=== PATIENT | female | born 1955 | race Caucasian/White ===

== ENCOUNTER → 2023-11-09 15:52 | Outpatient (REF) | payer OTHER, SELFPAY | LOC: PAVMRI 15:52 | PROVIDERS: ATTENDING PHYSICIAN Student in an Organized Health Care Education/Training Program; FAMILY PHYSICIAN Internal Medicine Geriatric Medicine | DX: M25.561 Pain in right knee (principal); M17.11 Unilateral primary osteoarthritis, right knee | CPT/HCPCS: 73721 ==

== ENCOUNTER → 2024-01-28 15:02 | Outpatient (REF) | payer OTHER, SELFPAY | LOC: WDC 15:02 | PROVIDERS: ATTENDING PHYSICIAN Nurse Practitioner Family | DX: Z12.31 Encounter for screening mammogram for malignant neoplasm of breast (principal) | CPT/HCPCS: 77063; 77067 ==

== ENCOUNTER 2024-05-30 06:13 | Day surgery (SDC) | payer OTHER, SELFPAY ==
[2024-05-16 13:06] VITALS: BMI 40.3
[2024-05-16 13:06] LABS: Blood Urea Nitrogen 17 mg/dl (7-17); Calcium 9.2 mg/dl (8.4-10.2); Carbon Dioxide 24 mmol/L (22-30); Chloride 104 mmol/L (98-107); Glucose 117 mg/dl (70-99); Potassium 4.1 mmol/L (3.5-5.1); Sodium 139 mmol/L (135-145); eGFR > 60.00
[2024-05-30] VITALS (10 sets, daily range): BP systolic 131–174; BP diastolic 72–97; BMI 40.3
[2024-05-30] MEDS: TYLENOL 1000 MG PO (10:30)
[2024-05-30] MEDS: CELEBREX 200 MG PO (10:30)
[2024-05-30] MEDS: NORMOSOL-R/PLASMALYTE-A 1000 IV (10:31)
[2024-05-30] MEDS: ZOFRAN 4 MG IV (16:00)
== END 2024-05-30 18:24 | disposition home or self-care (01) ==
LOC: SDS 06:13
PROVIDERS: ATTENDING PHYSICIAN Student in an Organized Health Care Education/Training Program; FAMILY PHYSICIAN Internal Medicine Geriatric Medicine
DX: Q66.6 Other congenital valgus deformities of feet (principal); M62.461 Contracture of muscle, right lower leg; M13.871 Other specified arthritis, right ankle and foot; E78.2 Mixed hyperlipidemia; K21.00 Gastro-esophageal reflux disease with esophagitis, without bleeding; E78.00 Pure hypercholesterolemia, unspecified; F41.9 Anxiety disorder, unspecified; E66.9 Obesity, unspecified; Z68.41 Body mass index [BMI] 40.0-44.9, adult; Z86.0100 Personal history of colon polyps, unspecified; Z98.84 Bariatric surgery status; Z81.1 Family history of alcohol abuse and dependence; Z82.49 Family history of ischemic heart disease and other diseases of the circulatory system; Z80.0 Family history of malignant neoplasm of digestive organs
CPT/HCPCS: 28725; 27687; 28740; 73630; 36415; 76000; 80048; 93005; C1713

== ENCOUNTER → 2025-01-30 13:35 | Outpatient (REF) | payer OTHER, SELFPAY | LOC: WDC 13:35 | PROVIDERS: ATTENDING PHYSICIAN Internal Medicine Geriatric Medicine | DX: Z12.31 Encounter for screening mammogram for malignant neoplasm of breast (principal) | CPT/HCPCS: 77063; 77067 ==